=== PATIENT | male | born 2000 | race Caucasian/White ===

== ENCOUNTER 2024-02-28 22:20 | Emergency (ER) | payer BC ==
[2024-02-28 22:26] VITALS: BP 142/106; PULSE 109; RESP 16; TEMP 98.9
--- NOTE | 2024-02-28 22:40 | ED ---
ENT HPI - General Chief complaint: ENT Stated complaint: Ear Pain Time Seen by Provider: 02/28/24 22:38 Source: patient, RN notes reviewed Mode of arrival: ambulatory Limitations: no limitations - History of Present Illness Initial comments: 24 year old male presenting to the ER for evaluation of right ear pain. Patient has been complaining of right ear pain for the past 3 to 4 days. He was seen at urgent care earlier today and had an ear wick placed in his right ear. He states he also started them on ofloxacin eardrops. He has had 1 dose of antib iotics. Presents here today for increasing pain. Denies any drainage or decreased hearing. He has tried [id number] ibuprofen and Tylenol without pain relief. He denies any fevers or chills. No other complaints. - Related Data Allergies Allergy/AdvReac Type Severity Reaction Status Date / Time No Known Allergies Allergy Verified 02/28/24 22:26 Review of Systems ROS Statement: Those systems with pertinent positive or pertinent negative responses have been documented in the HPI. ROS Other: All systems not noted in ROS Statement are negative. Past Medical History Past Medical History: No Reported History Additional Past Medical History / Comment(s): ear infection 02-28-24 History of Any Multi-Drug Resistant Organisms: None Reported Past Surgical History: No Surgical Hx Reported Additional Past Surgical History / Comment(s): partial thyroidectomy - when 16 yrs old Past Psychological History: No Psychological Hx Reported Smoking Status: Never smoker Past Alcohol Use History: Occasional Past Drug Use History: None Reported General Exam Limitations: no limitations General appearance: alert, in no apparent distress ENT exam: Present: normal oropharynx, mucous membranes moist, other (Earwick in place right ear canal. Left external auditory canal is erythematous and edematous. There is white drainage present. No mastoid tenderness bilaterally. Left tympanic membrane intact and nonbulging.) Respiratory exam: Present: normal lung sounds bilaterally. Absent: respiratory distress, wheezes, rales, rhonchi, stridor Cardiovascular Exam: Present: regular rate, normal rhythm, normal heart sounds. Absent: systolic murmur, diastolic murmur, rubs, gallop, clicks Skin exam: Present: warm, dry, intact, normal color. Absent: rash Course Vital Signs 02/28/24 22:22 Temperature 98.9 F Pulse Rate 109 H Respiratory 16 Rate Blood Pressure 142/106 O2 Sat by Pulse 99 Oximetry Medical Decision Making - Medical Decision Making Was pt. sent in by a medical professional or institution (FRANTZ Casillas, FIELD SALES TRAINER, urgent care, hospital, or prison...) When possible be specific @ -No Did you speak to anyone other than the patient for history (EMS, parent, family, police, friend...)? What history was obtained from this source @ -No Did you review nursing and triage notes (agree or disagree)? Why? @ -I reviewed and agree with nursing and triage notes Were old charts reviewed (outside hosp., previous admission, EMS record, old EKG, old radiological studies, urgent care reports/EKG's, prison records)? Report findings @ -No old charts were reviewed Differential Diagnosis (chest pain, altered mental status, abdominal pain women, abdominal pain men, vaginal bleeding, weakness, fever, dyspnea, syncope, headache, dizziness, GI bleed, back pain, seizure, CVA, palpatations, mental health, musculoskeletal)? @ -Otitis media, otitis externa, mastoiditis... This list is not meant to be all-inclusive EKG interpreted by me (3pts min.). @ -None done X-rays interpreted by me (1pt min.). @ -None done CT interpreted by me (1pt min.). @ -None done U/S interpreted by me (1pt. min.). @ -None done What testing was considered but not performed or refused? (CT, X-rays, U/S, labs)? Why? @ -None What meds were considered but not given or refused? Why? @ -None Did you discuss the management of the patient with other professionals (josiah bird i.e. FRANTZ Casillas, [employer] SAL[employer] TRAINER, lab, RT, psych nurse, mental health social worker, supervisor plate forming, teacher, real estate utilization officer, rn case mgr)? Give summary @ -No Was smoking cessation discussed for >3mins.? @ -No Was critical care preformed (if so, how long)? @ -No Were there social determinants of health that impacted care today? How? (Homelessness, low income, unemployed, alcoholism, drug addiction, transportation, low edu. Level, literacy, decrease access to med. care, senior care, rehab)? @ -No Was there de-escalation of care discussed even if they declined (Discuss DNR or withdrawal of care, Hospice)? DNR status @ -No What co-morbidities impacted this encounter? (DM, HTN, Smoking, COPD, CAD, Cancer, CVA, ARF, Chemo, Hep., AIDS, mental health diagnosis, sleep apnea, morbid obesity)? @ -None Was patient admitted / discharged? Hospital course, mention meds given and route, prescriptions, significant lab abnormalities, going to OR and other pertinent info. @ -Discharged. 24-year-old male presented to the ER with a chief complaint of right ear pain. Patient seen by urgent care earlier today and had an ear wick placed due to otitis externa. Patient was started on ofloxacin at that time. He reports today to the ER for increased pain. History and physical exam completed. Vitals stable. Patient in no signs of acute distress. Exam remarkable for right external auditory canal has an ear wick in place. Left external auditory canal is erythematous edematous with white drainage present. Left tympanic membrane intact and nonbulging. No mastoid tenderness bilaterally. I instructed patient continue using ofloxacin as prescribed. I also told him to start using this on left ear as there appears to be otitis externa on the side as well. Patient received symptomatic control in the ER with p.o. Tylenol 3. I also advised OTC ibuprofen and tylenol. Patient discharged with a starter pack of Tylenol threes. I advised him not to take OTC tylenol with tylenol 3s. I advised close follow-up with PCP. Strict return parameters discussed. Patient discharged in stable condition with follow-up to PCP. Patient verbally expressed understanding and agreement with care plan. Case discussed with ED attending, . Undiagnosed new problem with uncertain prognosis? @ -No Drug Therapy requiring intensive monitoring for toxicity (Heparin, Nitro, Insulin, Cardizem)? @ -No Were any procedures done? @ -No Diagnosis/symptom? @ -Otitis externa Acute, or Chronic, or Acute on Chronic? @ -Acute Uncomplicated (without systemic symptoms) or Complicated (systemic symptoms)? @ -Acute Side effects of treatment? @ -No Exacerbation, Progression, or Severe Exacerbation? @ -No Poses a threat to life or bodily function? How? (Chest pain, [place], [place], pneumonia, PE, COPD, DKA, ARF, appy, cholecystitis, CVA, Diverticulitis, Homicidal, Suicidal, threat to staff... and all critical care pts) @ -No Disposition Clinical Impression: Otitis externa Disposition: HOME SELF-CARE Condition: Stable Instructions (If sedation given, give patient instructions): [facility] (ED) Additional Instructions: Keep your work in place. Use ofloxacin eardrops 5 drops in each ear twice daily. Use in both ears. Continue taking [id number] medications for pain control. You may use Tylenol threes for extreme pain. Follow-up with PCP. Return to the ER for any new or worsening concerns. Is patient prescribed a controlled substance at d/c from ED?: No Referrals: Nonstaff,Physician [Primary Care Provider] - 1-2 days Time of Disposition: 22:40
[2024-02-28] MEDS: ACET/COD 300 MG/30 MG STARTER PACK 6 TAB BTL PO STA (22:56)
[2024-02-28] MEDS: Acetaminophen-Codeine 300-30mg TAB PO STA (22:56)
== END 2024-02-28 23:00 | disposition home or self-care (01) ==
LOC: EC 22:20
DX: H60.91 Unspecified otitis externa, right ear (principal)
CPT/HCPCS: 99282